=== PATIENT | male | born 1960 ===

== ENCOUNTER 2016-08-28 00:08 | Emergency (ER) | payer SELFPAY ==
[~2016-08-28] VITALS: Ht 182.9 cm; Wt 84.1 kg
[2016-08-28] MEDS ORDERED: KETOROLAC TROMETHAMINE 60 MG/2 ML VIAL IM ONE (01:00)
[2016-08-28] MEDS ORDERED: CYCLOBENZAPRINE HCL 10 MG TABLET PO ONE (01:00)
[2016-08-28 01:38] VITALS: BP 133/71
== END 2016-08-28 01:39 | disposition home or self-care (01) ==
LOC: EMS 00:12
DX: M54.5 Low back pain (principal)
CPT/HCPCS: 81002; 96372; 99283; J1885